=== PATIENT | male | born 1985 | race Caucasian/White ===

== ENCOUNTER 2016-11-03 13:46 | Emergency (ER) | payer SELFPAY ==
[2016-11-03 14:07] VITALS: BP 122/74
--- NOTE | 2016-11-03 14:21 | ER Document Report ---
HPI - HPI Patient complains to provider of: Neck soreness Onset: Other - 2 weeks Onset/Duration: Gradual Pain Level: 5 Context: 31-year-old male complaining of right neck soreness for 2 weeks he woke up this morning and could not move his neck with severe pain when he tries to move it. No radiculopathy no known injury. Lays cable wire at work. Associated Symptoms: None Exacerbated by: Movement Relieved by: Denies Similar symptoms previously: No Recently seen / treated by doctor: No - ROS ROS below otherwise negative: Yes Systems Reviewed and Negative: Yes All other systems reviewed and negative - REPRODUCTIVE Reproductive: DENIES: : - DERM Skin Color: Normal Past Medical History - General Information source: Patient - Social History Smoking Status: Current Every Day Smoker Frequency of alcohol use: None Drug Abuse: None Lives with: Spouse/Significant other Family History: None Patient has suicidal ideation: No Patient has homicidal ideation: No Renal/ Medical History: Denies: Hx Peritoneal Dialysis Psychiatric Medical History: Reports: Hx Attention Deficit Hyperactivity Disorder Past Surgical History: Reports: Hx Orthopedic Surgery - jaw surgery Vertical Provider Document - CONSTITUTIONAL Agree With Documented VS: Yes Exam Limitations: No Limitations - INFECTION CONTROL TRAVEL OUTSIDE OF THE [place] IN LAST 30 DAYS: No - HEENT HEENT: Normocephalic - NECK Neck: negative: Lymphadenopathy-Left, Lymphadenopathy-Right Notes: tender right trapezius muscle at posterior neck to the occipital insertion, non tender c spine - RESPIRATORY Respiratory: Breath Sounds Normal, No Respiratory Distress O2 Sat by Pulse Oximetry: 100 - CARDIOVASCULAR Cardiovascular: Regular Rate, Regular Rhythm Course - Vital Signs Vital signs: Temp Pulse Resp BP Pulse Ox 98.1 F 83 18 122/74 100 11/03/16 14:05 11/03/16 14:05 11/03/16 14:05 11/03/16 14:05 11/03/16 14:05 Discharge - Discharge Clinical Impression: Torticollis Condition: Good Disposition: HOME, SELF-CARE Instructions: Torticollis ([facility]), Muscle Relaxers ([facility]), Myalagia (Muscle Pain) ([facility]), Oral Narcotic Medication ([facility]), Warm Packs ([facility]) Additional Instructions: warm compress gentle range of motion continue the naprosyn also to er if worse soft pliable pillow to get comfortable at night Please complete the patient satisfaction survey if you get one, and return it.. If you do not receive a survey, then you can go to the [facility] website, [email or web address] and place your comments about your very good care. Thank you very much. It was a pleasure being your medical provider today. Prescriptions: Hydrocodone Bit/Acetaminophen [Hydrocodon-Acetaminophen 5-325] 1 - 2 each PO Q4HP PRN #15 tablet PRN Reason: Cyclobenzaprine HCl [Flexeril 10 Mg Tablet] 10 mg PO TIDP PRN #20 tablet PRN Reason: Forms: Return to Work
[2016-11-03] MEDS ORDERED: CYCLOBENZAPRINE HCL 10 MG TABLET PO ONE (14:27)
[2016-11-03] MEDS ORDERED: HYDROCODONE/ACETAMINOPHEN 5-325 MG TABLET PO ONE (14:27)
== END 2016-11-03 14:48 | disposition home or self-care (01) ==
LOC: ER 13:46
DX: M43.6 Torticollis (principal); M54.2 Cervicalgia; F17.200 Nicotine dependence, unspecified, uncomplicated
CPT/HCPCS: 99283